=== PATIENT | male | born 1940 | race Caucasian/White ===

== ENCOUNTER 2019-07-03 20:18 | Inpatient (IN) | payer MEDICARE, BC ==
[~2019-07-03] VITALS: Ht 167.6 cm; Wt 68.5 kg
--- NOTE | 2019-07-03 20:30 | NUR ---
PATIENT WAS MSE BY DR FLOWERS IN ROOM 05A.
[2019-07-03 21:11] LABS: BASOPHILS % (AUTO) 0.3 % (0.0-2.0); EOSINOPHILS # (AUTO) 0.1 K/uL (0.0-0.7); EOSINOPHILS % (AUTO) 0.7 % (0.0-7.0); HEMATOCRIT 39.2 % (31.2-41.9); LYMPHOCYTES # (AUTO) 1.9 K/uL (20.0-40.0); LYMPHOCYTES % (AUTO) 14.9 % (20.5-51.5); MEAN CORPUSCULAR HEMOGLOBIN 32.7 uug (24.7-32.8); MEAN CORPUSCULAR HGB CONC 33 g/dL (32.3-35.6); MEAN CORPUSCULAR VOLUME 98.4 fL (75.5-95.3); MONOCYTES # (AUTO) 1.3 K/uL (2.0-10.0); MONOCYTES % (AUTO) 10.4 % (0.0-11.0); NEUTROPHILS # (AUTO) 9.5 K/uL (1.8-8.9); NEUTROPHILS % (AUTO) 73.7 % (38.5-71.5); PLATELET COUNT (AUTO) 239 K/uL (179-408); RED BLOOD CELL COUNT(AUTO) 3.98 MIL/uL (3.63-4.92); WHITE BLOOD COUNT (AUTO) 12.9 K/uL (3.8-11.8)
[2019-07-03] MEDS ORDERED: POLY17PO4 PO (21:15)
[2019-07-03] MEDS ORDERED: SOD85CRE TP (21:15)
[2019-07-03] MEDS ORDERED: TURM538C PO (21:15)
[2019-07-03] MEDS ORDERED: magnesium PO (21:15)
[2019-07-03] MEDS ORDERED: TRAZ-257 PO (21:15)
[2019-07-03] MEDS ORDERED: TACR100O2 TP (21:15)
[2019-07-03] MEDS ORDERED: QUET25TA PO (21:15)
[2019-07-03] MEDS ORDERED: QUET50TA PO (21:15)
[2019-07-03] MEDS ORDERED: MEMA10TA PO (21:15)
[2019-07-03] MEDS ORDERED: CLOT30CR24 TP (21:15)
[2019-07-03] MEDS ORDERED: CLON0.1T PO (21:15)
[2019-07-03] MEDS ORDERED: ASCO500P18 PO (21:15)
[2019-07-03] MEDS ORDERED: DIVA125T2 PO (21:15)
[2019-07-03] MEDS ORDERED: MELA5TAB PO (21:15)
[2019-07-03] MEDS ORDERED: AMOX-430 PO (21:15)
[2019-07-03] MEDS ORDERED: ACET-2154 PO (21:15)
[2019-07-03] MEDS ORDERED: RISP0.5T5 PO (21:15)
[2019-07-03] MEDS ORDERED: CARB-93 PO (21:15)
[2019-07-03] MEDS ORDERED: DIVA500T2 PO (21:15)
[2019-07-03] MEDS ORDERED: LIDO1ADH71 TD (21:15)
[2019-07-03] MEDS ORDERED: CHLO473M5 MM (21:15)
[2019-07-03] MEDS ORDERED: RISP0.5T20 PO (21:15)
[2019-07-03 21:16] LABS: CARBON DIOXIDE 28 mmol/L (21-32); CHLORIDE 102 mmol/L (98-107); GLUCOSE 106 mg/dL (74-106); POTASSIUM 4.4 mmol/L (3.5-5.1); UREA NITROGEN, BLOOD 14 mg/dL (7-18)
[2019-07-03 21:21] LABS: ALANINE AMINOTRANSFERASE 13 U/L (14-59); ALKALINE PHOSPHATASE 111 U/L (50-136); ASPARTATE AMINOTRANSFERASE 17 U/L (15-37); BILIRUBIN,DIRECT 0.1 mg/dL (0.0-0.2); BILIRUBIN,TOTAL 0.4 mg/dL (0.2-1.0); TOTAL PROTEIN, SERUM 6.7 g/dL (6.4-8.2)
[2019-07-03 21:22] LABS: ACETAMINOPHEN < 10.0 ug/mL (10-30)
[2019-07-03 21:25] LABS: ETHANOL < 3 MG/DL (0-0)
[2019-07-03 21:45] LABS: THYROID STIMULATING HORMONE 1.073 mIU/mL (0.358-3.740)
--- NOTE | 2019-07-03 21:55 | NUR ---
PATIENT CONFUSED,ATTEMPTING TO GET OUT OF BED. DR FLOWERS AWARE.
[2019-07-03] MEDS ORDERED: HALOPERIDOL LACTATE 5 MG/1 ML VIAL ONE (21:57)
[2019-07-03] MEDS ORDERED: HALOPERIDOL LACTATE 5 MG/1 ML VIAL IM ONE (22:00)
[2019-07-03] MEDS ORDERED: LIDOCAINE 2% (UROJET) 10 ML JELLY MM ONE (22:00)
[2019-07-03 22:02] LABS: *BILIRUBIN,URIN NEGATIVE (NEGATIVE); *BLOOD, URINE NEGATIVE (NEGATIVE); *CLARITY,URINE CLEAR (CLEAR); *COLOR,URINE YELLOW (YELLOW); *KETONES,URINE TRACE (NEGATIVE); *UROBILINOGEN,URINE 0.2 E.U./dl (NORMAL); LEUKOCYTE ESTERASE ,URINE NEGATIVE (NEGATIVE); NITRITE, URINE NEGATIVE (NEGATIVE); PH,URINE 6.5 (5.0-8.0); UGLUCOSE NEGATIVE (NEGATIVE)
[2019-07-03 22:15] LABS: *AMPHETAMINE, URINE NEGATIVE (NEGATIVE); *BARBITURATE, URINE NEGATIVE (NEGATIVE); *CANNABINOID, URINE NEGATIVE (NEGATIVE); *COCCAINE, URINE NEGATIVE (NEGATIVE); *OPIATE, URINE NEGATIVE (NEGATIVE); *PHENCYCLIDINE SCREEN,URINE NEGATIVE (NEGATIVE)
--- NOTE | 2019-07-03 22:15 | NUR ---
PATIENT WAS EVALUATED BY FADI AND WILL PLACED ON HOLD.
[2019-07-03] MEDS ORDERED: LORAZEPAM 2 MG/1 ML VIAL ONE (22:26)
[2019-07-03] MEDS ORDERED: LORAZEPAM 2 MG/1 ML VIAL IM ONE (22:30)
--- NOTE | 2019-07-03 22:34 | NUR ---
Pt. admitted to MHU , under care of Dr. ALVA. Belongs List completed
[2019-07-03 22:45] VITALS: BP 98/44
[2019-07-03] MEDS ORDERED: TEMAZEPAM 7.5 MG CAPSULE PO PRN (23:30)
[2019-07-03] MEDS ORDERED: BLOOD SUGAR DIAGNOSTIC 1 EACH STRIP VI ONE (23:30)
[2019-07-03] MEDS ORDERED: MAGNESIUM HYDROXIDE 30 ML LIQUID UDC PO PRN (23:30)
[2019-07-03] MEDS ORDERED: MAG HYDROX/AL HYDROX/SIMETH 30 ML LIQUID UDC PO PRN (23:30)
--- NOTE | 2019-07-04 00:15 | NUR ---
RECEIVED TO CARE AT 2230, FROM THE EMERGENCY ROOM, ON A 72 HOUR HOLD FOR GRAVELY DISABLED, A TRANSFER FROM [facility]. ACCORDING TO THE HOLD, HE WAS BECOMING UNMANAGEABLE, BY STAFF. ALSO WAS REPORTED TO BE CONFUSED, WITH UNSTEADY GAIT, DISROBING, AND ATTEMPTING TO AMBULATE FROM HIS GURNEY, UNASSISTED. UPON ARRIVAL ON THE UNIT, HE WA SCONFUSED, AND RESTLESS. HE WAS MEDICATED IN WITH IM HALDOL AND ATIVEN, AND , WITHIN A FEW MINUTES HE WAS ASLEEP, AND ASSITED TO BED. OF NOW, HE REMAINS ASLEEP. NO DISTRESS NOTED. WILL CONTINUE TO MONITOR CLOSELY.
--- NOTE | 2019-07-04 06:00 | NUR ---
slept 6.25 hours. continues to sleep. no distress noted.
[2019-07-04 07:30] VITALS: BP 119/65
[2019-07-04] MEDS: LORAZEPAM 1 MG TABLET PO PRN ×2 (07:46→12:33)
[2019-07-04] MEDS: ACETAMINOPHEN 325 MG TABLET PO PRN (07:46)
[2019-07-04] MEDS: Z GUARD REMEDY PASTE 57 GM TUBE TOP SCH ×2 (09:06→20:28)
--- NOTE | 2019-07-04 10:25 | NUR ---
Social Work Note/Initial Discharge Plan: Patient currently resides at [address], [place] [address]; ([phone]). Per Stan ([phone]), expressed that she would want to reside at a SNF. SW will work with the patient and the MD regarding appropriate discharge planning. winery worker will form a safe and proper discharge.
--- NOTE | 2019-07-04 10:25 | NUR ---
Social Work Note/Family Contact: cupola worker spoke to patients significant other Stan ([phone]) and gathered collateral. Per Stan, she is the POA and will send over documentations to this typewriter assembly and parts inspector.
[2019-07-04] MEDS: ASCORBIC ACID 500 MG TABLET PO SCH (11:05)
--- NOTE | 2019-07-04 12:24 | NUR ---
Social Work Note/Coordination of Care: freezer worker spoke to admin coordinator Gaby from [facility] ([phone]) and they addressed that they are uncertain if they will accept patient back.
--- NOTE | 2019-07-04 12:30 | NUR ---
WOUND CARE CONSULT: PT PRESENTS WITH RT ELBOW SKIN TEAR AND LEFT LOWER LEG WOUNDS, PRESENT ON ADMISSION. RT LEG HAS HEALED AREA NOTED. RECOMMEND DPM CONSULT DEFER TO DPM FOR LOWER EXTREMITIES. WOUNDS ON LOWER LEGS ARE PROTECTED WITH NONSTICK DRESSINGS. RECOMMENDATIONS MADE FOR WOUND CARE OF RT ELBOW AND DISCUSSED WITH NURSING STAFF. PT REFUSED TO TURN FOR FULL SKIN ASSESSMENT OF BACK AND BUTTOCKS. WILL SEE PRN. HUNT IN AGREEMENT WITH PLAN OF CARE. CURRENT ESTELLA SCORE IS 20. Addendum: 07/04/19 at 1232 by KIERRA DEAN RN Amended: Links added.
[2019-07-04] MEDS: CLOTRIMAZOLE 1% CREAM 30 GM TUBE TP SCH (12:33)
[2019-07-04] MEDS: AMOXICILLIN-CLAVUL 875-125MG TABLET PO SCH ×2 (12:33→16:06)
[2019-07-04] MEDS: CARBIDOPA/LEVODOPA 25-100MG TABLET PO SCH ×2 (12:33→16:06)
--- NOTE | 2019-07-04 13:12 | NUR ---
Social Work Note/Coordination of Care: asbestos removal worker contacted Carlos Alberto admin coordinator from [facility] ([phone]) and stated that they are a locked facility but they are through private pay. Per Carlos Alberto, he stated that it is $240 per day and that they are not through insurance.
[2019-07-04] MEDS ORDERED: chlorproMAZINE 50 MG/2 ML AMPUL IM STA (14:32)
--- NOTE | 2019-07-04 14:50 | NUR ---
GPS: Nursing Notes: Chemical Restraint: Patient is awake and constantly shouting, screaming, overly disruptive, poor impulse control, poor anger management, episodes of disrobing, severe agitated behavior, restless, unable to be redirected, internally preoccupied, disoriented, confused, disorganized, banging on the table and the wall, resistant with nursing care, Dr. Koroma called and ordered: Thorazine 50mg IM STAT, R=18, continue to monitor for safety, medications IM given at this time, continue with treatment plan.
--- NOTE | 2019-07-04 15:18 | NUR ---
GPS: Nursing Notes: Reassessment of Chemical Restraint: Patient became calm, continue to be confused, disoriented, but stopped screaming and shouting, stopped banging on the table and wall, R=18, medication IM STAT was effective, continue to monitor for safety, continue with treatment plan.
--- NOTE | 2019-07-04 15:19 | NUR ---
Social Work Note/Coordination of Care: farmworker poultry contacted Carlos Alberto admin coordinator from [facility] ([phone]) and stated that they are a locked facility but they are through private pay. Per Carlos Alberto, he stated that it is $240 per day and that they are not through insurance. Per patients significant other Stan ([phone]) stated that she is able to pay out of pocket. This expert medical writer will fax patients H & P psychiatric notes and progress notes when completes (at this moment it is unavailable in the system).
[2019-07-04 16:00] VITALS: BP 92/44
[2019-07-04] MEDS: THERAHONEY GEL 1.5 OZ TUBE TOP SCH (16:18)
[2019-07-04] MEDS: MIRALAX 17 GM POWD.PACK PO SCH (19:57)
[2019-07-04 20:19] VITALS: BP 140/85
[2019-07-04] MEDS: RIVASTIGMINE TARTRATE 1.5 MG CAPSULE PO SCH (21:24)
[2019-07-04] MEDS: DIVALPROEX 250 MG TABLET.DR PO SCH (21:24)
[2019-07-04] MEDS: risperiDONE 0.5 MG TABLET PO SCH (21:24)
--- NOTE | 2019-07-05 05:56 | NUR ---
Patient slept 6 hours. Am care given. No distress noted. Patient does yell out from time to time. Continuing to keep patient safe.
[2019-07-05 07:30] VITALS: BP 162/68
[2019-07-05] MEDS: RIVASTIGMINE TARTRATE 1.5 MG CAPSULE PO SCH ×2 (08:03→20:28)
[2019-07-05] MEDS: CARBIDOPA/LEVODOPA 25-100MG TABLET PO SCH ×3 (08:03→16:03)
[2019-07-05] MEDS: AMOXICILLIN-CLAVUL 875-125MG TABLET PO SCH ×2 (08:03→16:03)
[2019-07-05] MEDS: DIVALPROEX 250 MG TABLET.DR PO SCH (08:03)
[2019-07-05] MEDS: risperiDONE 0.5 MG TABLET PO SCH ×2 (08:03→20:28)
[2019-07-05] MEDS: ASCORBIC ACID 500 MG TABLET PO SCH (08:03)
[2019-07-05] MEDS: CLOTRIMAZOLE 1% CREAM 30 GM TUBE TP SCH (08:04)
[2019-07-05] MEDS: Z GUARD REMEDY PASTE 57 GM TUBE TOP SCH ×2 (08:04→20:28)
[2019-07-05] MEDS: THERAHONEY GEL 1.5 OZ TUBE TOP SCH (08:07)
[2019-07-05] MEDS: LORAZEPAM 1 MG TABLET PO PRN ×2 (08:09→22:36)
[2019-07-05] MEDS ORDERED: Medication Not On Formulary EA (Ascorbic Acid (Vitamin C) 1,000 MG) PO SCH (09:00)
[2019-07-05 15:47] VITALS: BP 107/55
[2019-07-05] MEDS: MIRALAX 17 GM POWD.PACK PO SCH (20:28)
[2019-07-05 20:44] VITALS: BP 130/57
[2019-07-06 07:56] VITALS: BP 134/64
[2019-07-06] MEDS: CARBIDOPA/LEVODOPA 25-100MG TABLET PO SCH ×5 (08:20→18:04)
[2019-07-06] MEDS: AMOXICILLIN-CLAVUL 875-125MG TABLET PO SCH ×4 (08:20→18:03)
[2019-07-06] MEDS: risperiDONE 0.5 MG TABLET PO SCH ×4 (08:20→21:15)
[2019-07-06] MEDS: CLOTRIMAZOLE 1% CREAM 30 GM TUBE TP SCH (08:20)
[2019-07-06] MEDS: DIVALPROEX 250 MG TABLET.DR PO SCH ×5 (08:20→18:03)
[2019-07-06] MEDS: ASCORBIC ACID 500 MG TABLET PO SCH ×3 (08:20→08:47)
[2019-07-06] MEDS: Z GUARD REMEDY PASTE 57 GM TUBE TOP PRN (08:23)
[2019-07-06] MEDS: THERAHONEY GEL 1.5 OZ TUBE TOP SCH (08:24)
[2019-07-06] MEDS: Z GUARD REMEDY PASTE 57 GM TUBE TOP SCH ×2 (08:26→21:17)
[2019-07-06] MEDS: RIVASTIGMINE TARTRATE 1.5 MG CAPSULE PO SCH ×3 (08:26→21:15)
[2019-07-06] MEDS: LORAZEPAM 1 MG TABLET PO PRN ×2 (08:30→13:34)
[2019-07-06] MEDS: ACETAMINOPHEN 325 MG TABLET PO PRN (08:30)
--- NOTE | 2019-07-06 09:33 | NUR ---
Social Work Note/Coordination of Care: plate worker helper spoke to Carlos Alberto admin coordinator ([phone]) ([phone]) and sent patients H & P psychiatric notes and progress notes. Per Carlos Alberto, he will contact this flex o writer operator to when to evaluate patient.
--- NOTE | 2019-07-06 11:46 | NUR ---
Social Work Note/Family Contact: hot iron worker spoke to patients significant other Stan ([phone]) in regard to patients discharge plan and stated that [facility] will accept patient. Stan, sent this software writer POA documentation, this software writer filed documentation.
--- NOTE | 2019-07-06 11:47 | NUR ---
Social Work Note/Coordination of Care: rubber worker spoke to Carlos Alberto admin coordinator from [facility] ([phone]) ([phone]) and sent patients H & P psychiatric notes and progress notes. Evelin Godoy evaluated patient and stated that they will accept patient upon discharge.
[2019-07-06 16:56] VITALS: BP 125/66
--- NOTE | 2019-07-06 17:25 | NUR ---
Patient admitted at 1525 to GPS on a 5150 hold for DTS, educated about hold and advisement given and placed at patient bedside. Patient admitted from ER on a gurney by RN. Dr. Wylie notified about admission at 1615. Patient's called to obtain Advanced Directive, left message at 1700. Upon admission, patient is irritable, anxious, and angry. On face to face interview, patient initially refused to provide information but later provided information. Patient stated that he has not had any previous psychiatric admission, no history of SI or SA. Patient had 1 admission to [facility] in "summer" for alcohol abuse. He reports drinking 1 pint of vodka daily, but has since stopped and is only drinking 1 glass of wine per week. patient current smokes cannabis 3-4 times per week for chronic pain in his abdomen from previous surgeries. Patient denies history of abuse. Patient oriented to unit rules and policies. Patient provided with patients rights booklet. He was cooperative with admission, patient signed all admission paperwork. No agitation or threatening behaviors. Addendum: 07/06/19 at 1734 by JAMES MACKAY RN Admission note not intended for this patient.
[2019-07-06 20:07] VITALS: BP 130/62
[2019-07-06] MEDS: MIRALAX 17 GM POWD.PACK PO SCH (21:15)
--- NOTE | 2019-07-06 23:00 | NUR ---
Pt served with copy of 5250 Certification.
[2019-07-07 07:30] VITALS: BP 168/80
[2019-07-07] MEDS: ASCORBIC ACID 500 MG TABLET PO SCH (08:44)
[2019-07-07] MEDS: Z GUARD REMEDY PASTE 57 GM TUBE TOP PRN (08:45)
[2019-07-07] MEDS: risperiDONE 0.5 MG TABLET PO SCH ×2 (08:45→21:05)
[2019-07-07] MEDS: RIVASTIGMINE TARTRATE 1.5 MG CAPSULE PO SCH ×2 (08:45→21:05)
[2019-07-07] MEDS: CARBIDOPA/LEVODOPA 25-100MG TABLET PO SCH ×3 (08:45→16:54)
[2019-07-07] MEDS: CLOTRIMAZOLE 1% CREAM 30 GM TUBE TP SCH (08:45)
[2019-07-07] MEDS: DIVALPROEX 250 MG TABLET.DR PO SCH ×3 (08:45→16:54)
[2019-07-07] MEDS: THERAHONEY GEL 1.5 OZ TUBE TOP SCH (08:46)
[2019-07-07] MEDS: Z GUARD REMEDY PASTE 57 GM TUBE TOP SCH ×2 (08:46→21:05)
--- NOTE | 2019-07-07 15:12 | NUR ---
Social Work Note/Individual Therapy Notes: galley worker met with patient but was unable to have a conversation with patient due to his situation. Patient is unable to ascertain and engage in conversation.
[2019-07-07 16:44] VITALS: BP 165/91
[2019-07-07 20:14] VITALS: BP 147/70
[2019-07-07] MEDS: MIRALAX 17 GM POWD.PACK PO SCH (21:00)
[2019-07-08 07:30] VITALS: BP 138/65
[2019-07-08] MEDS: risperiDONE 0.5 MG TABLET PO SCH ×2 (08:33→21:22)
[2019-07-08] MEDS: DIVALPROEX 250 MG TABLET.DR PO SCH ×3 (08:33→17:06)
[2019-07-08] MEDS: CARBIDOPA/LEVODOPA 25-100MG TABLET PO SCH ×3 (08:33→17:06)
[2019-07-08] MEDS: RIVASTIGMINE TARTRATE 1.5 MG CAPSULE PO SCH ×2 (08:33→21:22)
[2019-07-08] MEDS: ASCORBIC ACID 500 MG TABLET PO SCH (08:33)
[2019-07-08] MEDS: Z GUARD REMEDY PASTE 57 GM TUBE TOP SCH ×2 (08:34→21:23)
[2019-07-08] MEDS: THERAHONEY GEL 1.5 OZ TUBE TOP SCH (08:34)
[2019-07-08] MEDS: CLOTRIMAZOLE 1% CREAM 30 GM TUBE TP SCH (08:34)
[2019-07-08 16:00] VITALS: BP 153/68
--- NOTE | 2019-07-08 17:30 | NUR ---
came to visit. took patient to recreation room to have dinner and spend time with other family members.
[2019-07-08 20:47] VITALS: BP 150/70
[2019-07-08] MEDS: MIRALAX 17 GM POWD.PACK PO SCH (21:22)
--- NOTE | 2019-07-08 22:00 | NUR ---
received to care, up in daron chair, appearing calm, upon approach. compliant with medications, snacks, and all care rendered. as of 2199, he appears to be asleep, in bed. no distress noted. will continue to monitor closely.
[2019-07-09] MEDS: LORAZEPAM 1 MG TABLET PO PRN (01:08)
--- NOTE | 2019-07-09 01:08 | NUR ---
is now awake, yelling out, intermittently. stating "this is kanika, and i am applying for a job". PRN ativan was given. no acute distress noted. will continue to monitor closely.
--- NOTE | 2019-07-09 02:00 | NUR ---
appears to be asleep.
--- NOTE | 2019-07-09 06:00 | NUR ---
slept 7.45 hours, total. assited with am care, and shower. no distress noted.
[2019-07-09 07:30] VITALS: BP 144/62
[2019-07-09] MEDS: RIVASTIGMINE TARTRATE 1.5 MG CAPSULE PO SCH ×2 (08:45→21:00)
[2019-07-09] MEDS: risperiDONE 0.5 MG TABLET PO SCH ×2 (08:45→21:00)
[2019-07-09] MEDS: CARBIDOPA/LEVODOPA 25-100MG TABLET PO SCH ×3 (08:46→16:47)
[2019-07-09] MEDS: ASCORBIC ACID 500 MG TABLET PO SCH (08:46)
[2019-07-09] MEDS: DIVALPROEX 250 MG TABLET.DR PO SCH ×3 (08:46→16:47)
[2019-07-09] MEDS: CLOTRIMAZOLE 1% CREAM 30 GM TUBE TP SCH (08:48)
[2019-07-09] MEDS: THERAHONEY GEL 1.5 OZ TUBE TOP SCH (08:49)
[2019-07-09] MEDS: Z GUARD REMEDY PASTE 57 GM TUBE TOP SCH ×2 (08:49→20:53)
[2019-07-09 10:00] VITALS: BP 144/62
[2019-07-09 20:04] VITALS: BP 122/47
[2019-07-09] MEDS: METOPROLOL TARTRATE 25 MG TABLET PO SCH (21:00)
[2019-07-09] MEDS: MIRALAX 17 GM POWD.PACK PO SCH (21:00)
--- NOTE | 2019-07-09 22:00 | NUR ---
received to care, lying in bed, asleep. but easy to awaken. responds with a mumble, and goes right back to sleep. pt was able to take and tolerate PO fluids (150 ml of water was given), but medications were held, due to sleepiness. as or 2200, he remains asleep. responds verbally when care is rendered, but remains sleepy, when engaged. no distress noted. will continue to monitor closely.
--- NOTE | 2019-07-10 06:00 | NUR ---
slept 10.5 hours, total. continues to sleep. no distress noted.
[2019-07-10 07:30] VITALS: BP 142/50
[2019-07-10] MEDS: ASCORBIC ACID 500 MG TABLET PO SCH (09:50)
[2019-07-10] MEDS: METOPROLOL TARTRATE 25 MG TABLET PO SCH ×2 (09:51→20:28)
[2019-07-10] MEDS: DIVALPROEX 250 MG TABLET.DR PO SCH ×3 (09:51→16:47)
[2019-07-10] MEDS: RIVASTIGMINE TARTRATE 1.5 MG CAPSULE PO SCH ×2 (09:51→20:28)
[2019-07-10] MEDS: risperiDONE 0.5 MG TABLET PO SCH ×2 (09:51→20:28)
[2019-07-10] MEDS: CARBIDOPA/LEVODOPA 25-100MG TABLET PO SCH ×3 (09:57→16:47)
[2019-07-10] MEDS: ACETAMINOPHEN 325 MG TABLET PO PRN (09:57)
[2019-07-10] MEDS: Z GUARD REMEDY PASTE 57 GM TUBE TOP SCH ×2 (09:58→20:32)
[2019-07-10] MEDS: CLOTRIMAZOLE 1% CREAM 30 GM TUBE TP SCH (09:59)
[2019-07-10] MEDS: THERAHONEY GEL 1.5 OZ TUBE TOP SCH (09:59)
--- NOTE | 2019-07-10 11:05 | NUR ---
GPS: Nursing Notes: Late Entry for 07/04/19at 15:46: Refusing For Picture To Be Taken: Patient became angry and disruptive, severe agitation, resistant with nursing care, refusing for picture to be taken of his right elbow, skin tear present on admission.
--- NOTE | 2019-07-10 15:23 | NUR ---
Social Work Note/PC Hearing Notification: habilitation worker contacted patients significant other Stan, ([phone]) and notified patients probable cause of hearing today.
--- NOTE | 2019-07-10 15:53 | NUR ---
Social Work Note/Family Contact: machine shop worker contacted patients significant other Stan ([phone]) and addressed patients status and discharged plan.
--- NOTE | 2019-07-10 16:03 | NUR ---
Social Work/Coordination of Care: asbestos abatement worker contacted Carlos Alberto from [facility] ([phone]) (F:[phone]) and sent patients recent psychiatric H & P notes and progress notes. Per Carlos Alberto, he is agreeable to patients discharge plan on 07/12/2019.
[2019-07-10 16:32] VITALS: BP 160/99
[2019-07-10 20:14] VITALS: BP 145/56
[2019-07-10 20:28] VITALS: BP 145/56
[2019-07-10] MEDS: MIRALAX 17 GM POWD.PACK PO SCH (20:28)
[2019-07-11] MEDS: Z GUARD REMEDY PASTE 57 GM TUBE TOP PRN (00:57)
[2019-07-11] MEDS ORDERED: Z GUARD REMEDY PASTE 57 GM TUBE TOP PRN (01:15)
--- NOTE | 2019-07-11 04:00 | NUR ---
GPS: Pt.asleep upon rounds. Breathing easy and unlabored. In no form of distress noted. Fall precautions observed. Repositioned for comfort prn. Will continue to monitor.
--- NOTE | 2019-07-11 06:15 | NUR ---
GPS: Pt.after shower suddenly became unresponsive to voice/tactile stimuli. Skin color was pale and unable to be aroused. V/S taken as follows; B/P 43/29 O2 Sat 96%. Rapid Response was called. B.S 162 mg/dl. was notified.House Supv.with instructions to take pt.to E.R. for further eval. Pt.left unit accompanied by E.R. nurses and house supv. Report given to Sagar Starr Last B/P 79/36,O2 Sat.95%.
--- NOTE | 2019-07-11 07:00 | NUR ---
GPS: Endorsed day shift nurse to inform /resp.libertarian of pt's transfer to E.R.
[2019-07-11] MEDS ORDERED: Z GUARD REMEDY PASTE 57 GM TUBE TOP SCH (09:00)
--- NOTE | 2019-07-11 10:11 | NUR ---
Social Work Note/Discharge Note: Patient was transferred from [facility] to [facility] on 07/11/2019 at 7AM due to low blood pressure. In the morning patient was given a shower, he presented pale and his blood pressure was low and was unresponsive. Dr. Koroma discontinued the 5250 for grave disability. Patient had a planned discharge for tomorrow 07/12/2019 to a [facility] assisted living [address], [place] [address]; ([phone]) and will be provided transportation at 1PM by [facility]. Engine Oiler spoke with Carlos Alberto ultrasound coordinator ([phone]) at the facility who states they are ready to accept the patient back today. Patients significant other Stan, ([phone]) is aware and agreeable with discharge plans. Patient is aware and agreeable with discharge plans. Patient will follow-up at the facility with Dr. Darwin Garcia (gifted teacher) and with Dr. Pastor (psychiatrist). Patient was given outpatient mental health referrals to [facility], [facility] [address], [place] [address]; [phone]]; [facility] Crisis Line ([phone]); National Suicide Prevention Lifeline ( ). Patient presents with euthymic mood and congruent affect.
--- NOTE | 2019-07-11 15:20 | NUR ---
Social Work Note: packing floor worker contacted Afshan case coordinator and notified to fax patients physician report to [facility] ([phone]) (F:[phone]). packing floor worker also contacted Carlos Alberto admin coordinator ([phone]) that discharge will be canceled for 07/12/19 due to patient not doing well.
== END 2019-07-11 08:00 | disposition short-term general hospital (02) | DRG 885 ==
LOC: ER 20:18 → EDSEX 20:18 → GPS 22:37
PROVIDERS: ADMIT Psychiatry & Neurology Psychiatry; ATTEND Internal Medicine
DX: F39 Unspecified mood [affective] disorder (principal); F02.81 Dementia in other diseases classified elsewhere, unspecified severity, with behavioral disturbance; G31.83 Neurocognitive disorder with Lewy bodies; I45.10 Unspecified right bundle-branch block; N40.1 Benign prostatic hyperplasia with lower urinary tract symptoms; R40.4 Transient alteration of awareness; N39.498 Other specified urinary incontinence; J45.909 Unspecified asthma, uncomplicated; D75.89 Other specified diseases of blood and blood-forming organs; Z91.81 History of falling; R26.81 Unsteadiness on feet; G89.29 Other chronic pain; M54.5 Low back pain; Z91.19 Patient's noncompliance with other medical treatment and regimen; M20.42 Other hammer toe(s) (acquired), left foot; M20.41 Other hammer toe(s) (acquired), right foot; L90.9 Atrophic disorder of skin, unspecified; S81.802A Unspecified open wound, left lower leg, initial encounter; X58.XXXA Exposure to other specified factors, initial encounter; Y92.129 Unspecified place in nursing home as the place of occurrence of the external cause
CPT/HCPCS: 36415; 80307; 84443; 85025; 93005; A4663; G0480; G0480-TC; J1630; J2060; J3230; J3490

== ENCOUNTER 2019-07-11 06:41 | Inpatient (IN) | payer MEDICARE, BC ==
[2019-07-11] VITALS (33 sets, daily range): BP systolic 59–125; BP diastolic 32–98
[~2019-07-11] VITALS: Ht 167.6 cm; Wt 65.3 kg
[~2019-07-11 06:41] MED LIST: ACET-2154 PO; AMOX-430 PO; ASCO500P18 PO; CARB-93 PO; CHLO473M5 MM; CLON0.1T PO; CLOT30CR24 TP; LIDO1ADH71 TD; POLY17PO4 PO; SOD85CRE TP; TACR100O2 TP; TURM538C PO; magnesium PO
[2019-07-11] MEDS ORDERED: IV NORMAL SALINE 500 ML BAG IV ONE (07:00)
--- NOTE | 2019-07-11 07:00 | NUR ---
Patient brought in from MHU to ED. c/o AMS. MHU staff states that patient was "fine" before taking a shower and sudden change in LOC. patient responsive to painful stimuli only. Breathing even and unlabored. O2 sat at 98% on RA. POC BS at bedside was 165. pulses palpable x4 extremities. equal BUE strength noted. VS at bedside MECHANICAL OXIDIZER to ED BP76/65 P108 R16.
--- NOTE | 2019-07-11 07:10 | NUR ---
Patient taken to radiology dept via felicitas. VS P102 R14 T98.9 O2 sat at 92% on RA
[2019-07-11 07:15] LABS: BASOPHILS # (AUTO) 0.1 K/uL (0.0-8.0); BASOPHILS % (AUTO) 0.5 % (0.0-2.0); EOSINOPHILS # (AUTO) 0.1 K/uL (0.0-0.7); EOSINOPHILS % (AUTO) 0.5 % (0.0-7.0); HEMATOCRIT 43.5 % (36.7-47.1); HEMOGLOBIN 14.2 g/dL (12.5-16.3); LYMPHOCYTES # (AUTO) 2.2 K/uL (20.0-40.0); LYMPHOCYTES % (AUTO) 18.8 % (20.5-51.5); MEAN CORPUSCULAR HEMOGLOBIN 32.1 uug (23.8-33.4); MEAN CORPUSCULAR HGB CONC 33 g/dL (32.5-36.3); MEAN CORPUSCULAR VOLUME 97.9 fL (73.0-96.2); MONOCYTES # (AUTO) 1.2 K/uL (2.0-10.0); MONOCYTES % (AUTO) 10.4 % (0.0-11.0); NEUTROPHILS # (AUTO) 8.1 K/uL (1.8-8.9); NEUTROPHILS % (AUTO) 69.8 % (38.5-71.5); PLATELET COUNT (AUTO) 274 K/uL (152-348); RED BLOOD CELL COUNT(AUTO) 4.44 MIL/uL (4.06-5.63); WHITE BLOOD COUNT (AUTO) 11.6 K/uL (3.6-10.2)
--- NOTE | 2019-07-11 07:20 | NUR ---
Report given to juliano HENNING
[2019-07-11 07:21] LABS: CARBON DIOXIDE 26 mmol/L (21-32); CHLORIDE 103 mmol/L (98-107); CREATININE 1.2 mg/dL (0.6-1.3); GLUCOSE 191 mg/dL (74-106); POTASSIUM 4.2 mmol/L (3.5-5.1); UREA NITROGEN, BLOOD 22 mg/dL (7-18)
[2019-07-11 07:26] LABS: ALANINE AMINOTRANSFERASE 42 U/L (16-63); ALKALINE PHOSPHATASE 117 U/L (50-136); ASPARTATE AMINOTRANSFERASE 17 U/L (15-37); BILIRUBIN,DIRECT 0.1 mg/dL (0.0-0.2); BILIRUBIN,TOTAL 0.5 mg/dL (0.2-1.0); TOTAL PROTEIN, SERUM 7.1 g/dL (6.4-8.2)
--- NOTE | 2019-07-11 07:27 | NUR ---
Pt back from CT, NAD noted at this time.
[2019-07-11 07:34] LABS: THYROID STIMULATING HORMONE 1.783 mIU/mL (0.358-3.740)
--- NOTE | 2019-07-11 08:15 | NUR ---
Dr. Bryant spoke with Dr. Gomez via telephone, pt to be admitted to tele. Attempted to give report to tele floor, assigned nurse to call back.
--- NOTE | 2019-07-11 08:30 | NUR ---
Attempted to give report again, assigned nurse to call back. Pt resting with NAD noted.
--- NOTE | 2019-07-11 08:37 | NUR ---
SBAR report given to MILADY Contreras via telephone.
--- NOTE | 2019-07-11 08:49 | NUR ---
Pt trans to tele floor, NAD noted.
[2019-07-11] MEDS ORDERED: IV D5/ 0.9% NACL 1,000 ML IV PRN (10:45)
[2019-07-11] MEDS ORDERED: ACETAMINOPHEN 325 MG TABLET PO PRN (10:45)
[2019-07-11] MEDS ORDERED: Z GUARD REMEDY PASTE 57 GM TUBE TOP PRN (10:45)
[2019-07-11] MEDS ORDERED: HYDROCODONE/APAP 5-325MG TABLET PO PRN (10:45)
[2019-07-11] MEDS ORDERED: CARBIDOPA/LEVODOPA 25-100MG TABLET PO SCH (10:45)
[2019-07-11] MEDS: ENOXAPARIN SODIUM 40 MG/0.4 ML DISP.SYRIN SQ SCH (10:45)
[2019-07-11] MEDS ORDERED: ONDANSETRON 4 MG/2 ML VIAL IV PRN (10:45)
[2019-07-11 12:48] LABS: BASOPHILS % (AUTO) 0.1 % (0.0-2.0); CARBON DIOXIDE 21 mmol/L (21-32); CHLORIDE 103 mmol/L (98-107); CREATININE 1.7 mg/dL (0.6-1.3); GLUCOSE 261 mg/dL (74-106); HEMATOCRIT 41.9 % (36.7-47.1); HEMOGLOBIN 13.5 g/dL (12.5-16.3); LYMPHOCYTES # (AUTO) 1.1 K/uL (20.0-40.0); LYMPHOCYTES % (AUTO) 7.1 % (20.5-51.5); MEAN CORPUSCULAR HEMOGLOBIN 32.5 uug (23.8-33.4); MEAN CORPUSCULAR HGB CONC 32 g/dL (32.5-36.3); MEAN CORPUSCULAR VOLUME 100.6 fL (73.0-96.2); MONOCYTES % (AUTO) 6.7 % (0.0-11.0); NEUTROPHILS # (AUTO) 13.1 K/uL (1.8-8.9); NEUTROPHILS % (AUTO) 86.1 % (38.5-71.5); PLATELET COUNT (AUTO) 233 K/uL (152-348); POTASSIUM 4.9 mmol/L (3.5-5.1); RED BLOOD CELL COUNT(AUTO) 4.16 MIL/uL (4.06-5.63); UREA NITROGEN, BLOOD 28 mg/dL (7-18)
[2019-07-11 12:59] LABS: WHITE BLOOD COUNT (AUTO) 15.2 K/uL (3.6-10.2)
--- NOTE | 2019-07-11 13:00 | NUR ---
Recieved pt from Diane HENNING post rapid response, post intubated on the floor. SBP is still low in the 70's. Started on Levophed drip at 30mcg/min. Pt also is somewhat is restless, started on Propofol drip at 20mcg/kg/min. Awaiting for the PICC line RN. Pt is responsive, ETT in place. Vent setting of AC14, VT500, FIO@-50%. Sat is 100% HR is ST in the 130's, is awar3e.
--- NOTE | 2019-07-11 13:24 | NUR ---
CLINICAL PHARMACY NOTE:VANCOMYCIN DOSING Request for vancomycin dosing on 78 y/o male 172.72cm 72.57kg for UTI Temp 99.8F BUN 28 Scr 1.7 WBC 15.2 also on Merrem Start vancomycin 1gm ivpb q24h estimated trough 17. Will order trough level prior to 4th dose. Will continue to monitor
[2019-07-11] MEDS ORDERED: NOREPINEPHRINE BITARTRATE 8 MG in IV DEXTROSE 5% 500 ML IV PRN ×3 (13:30→19:15)
[2019-07-11] MEDS ORDERED: PROPOFOL 100 ML IV PRN (13:30)
[2019-07-11] MEDS ORDERED: MEROPENEM 1 G in IV NORMAL SALINE 100 ML IV SCH (14:00)
[2019-07-11] MEDS ORDERED: VANCOMYCIN IV 1,000 MG in IV DEXTROSE 5% 250 ML IV SCH (14:00)
[2019-07-11] MEDS ORDERED: ETOMIDATE 20 MG/10 ML VIAL ONE (14:44)
[2019-07-11] MEDS ORDERED: ROCURONIUM BROMIDE 50 MG/5 ML VIAL ONE (14:44)
[2019-07-11] MEDS: PROPOFOL 100 ML IV PRN (15:04)
[2019-07-11] MEDS: MEROPENEM 1 G in IV NORMAL SALINE 100 ML IV SCH (15:14)
[2019-07-11] MEDS: CHLORHEXIDINE GLUCONATE 15 ML MOUTHWASH MM SCH ×2 (15:15→21:14)
[2019-07-11 15:42] LABS: ABG BASE EXCESS -7.9 mmol/L; ABG HCO3 16.7 mmol/L; ABG PH 7.336 (7.350-7.450); ABG PO2 230.9 mmHg (75.0-100.0); ABG SITE RIGHT RADIAL; ABG TOTAL HEMOGLOBIN 14.1 G/dL (13.5-18.0); MetHb 0.1 % (0.0-1.5); O2Hb 98.6 % (94.0-97.0); VENT MODE VENT - A/C 14; VT, ABG 500 mL
[2019-07-11] MEDS: ASPIRIN 81 MG TAB.CHEW PO SCH (16:00)
--- NOTE | 2019-07-11 16:00 | NUR ---
Seen and examined by DR May with new orders. EKG is done.
[2019-07-11] MEDS ORDERED: CHLORHEXIDINE GLUCONATE 15 ML MOUTHWASH MM SCH (17:00)
--- NOTE | 2019-07-11 17:15 | NUR ---
PT INTUBATED BY ED MD, 7.[address], PATENT AND SECURED WITH TUBE MELVIN. VENT'D WITH FUENTES VENT AND TOLERATING CURRENT SETTINGS WELL. ABG'S DRAWN AND REPORT, NO NEW ORDERS REC'D. VENT ALARMS AUDIBLE, CHECKED AND RESET. BVM AT BEDSIDE. CONT TO MONITOR AND REPORT ANY CHANGES. CONT WITH CURRENT RT ORDERS.
--- NOTE | 2019-07-11 18:00 | NUR ---
PICC line done at bedside on the right groin are. Confirmed placement by XRAY.
--- NOTE | 2019-07-11 18:30 | NUR ---
Pt' BP is low in the 60's. Started on Neosynephrine at 300mg/min. Add Levophed on the drip at 40 mcg/min.
[2019-07-11] MEDS: PHENYLEPHRINE IV 40 MG in IV DEXTROSE 5% 250 ML IV PRN ×3 (18:46→23:12)
--- NOTE | 2019-07-11 19:30 | NUR ---
rounds made patient patient in bed orally intubated on ac 14/500/fio2 50% peep 0 7.5cm ,22 tolerating vent settings saturation 100 % rr 20 suction ett via via the mouth , on Levophed drip and norepinephrine drip to follow protocol to keep sbp >90 mm/hg.propofol for sedation patient withdraws to pain but does not follow commands . moved bilateral hands slow and weak, as endorsed MD:nutralapaty was not able to placed f/c penile area with small amt of blood awaiting for dr: yue urologist . bladder scan is zero bladder is empty .left nare ngt clamp. patient significant others updated with patients v/s ,medications and level of mentation .
[2019-07-11] MEDS: NOREPINEPHRINE BITARTRATE 8 MG in IV DEXTROSE 5% 500 ML IV PRN ×2 (19:32→22:52)
--- NOTE | 2019-07-11 19:45 | NUR ---
DR:CHELSEY at [facility] came to see patient .MD : examined patient at bedside . updated md with patient v/s /labs and current medication .DOCTOR spoked with patient girlfriend katarzyna with patient plan of care and treatment .
--- NOTE | 2019-07-11 20:30 | NUR ---
DR: PELON came assisted and placed codet catheter guatemalan 14 ,irrigated and as per MD catheter is in place but patient just dont have urine right now . spoked wit patient significant other.
--- NOTE | 2019-07-11 20:45 | NUR ---
: BONNIE irrigated the f/c no clot but its cranberry in color .still with no urine output .
[2019-07-11] MEDS ORDERED: MIRALAX 17 GM POWD.PACK PO SCH (21:00)
[2019-07-11] MEDS: FAMOTIDINE. 20 MG/2 ML VIAL IV SCH (21:14)
--- NOTE | 2019-07-11 21:40 | NUR ---
seen and examined by FLIGHT ENGINEER INSPECTOR:SHERINE and updated with patient status and condition ,and updated with labs and v/s.
--- NOTE | 2019-07-11 22:00 | NUR ---
patient daughter name merissa and updated with patient status and condition .
[2019-07-12] VITALS (94 sets, daily range): BP systolic 62–154; BP diastolic 33–111
--- NOTE | 2019-07-12 | NUR ---
am care done bath patient and changed soiled linens had a small bm . f/c done and oral care done .turned and reposition.
[2019-07-12] MEDS: PROPOFOL 100 ML IV PRN ×2 (01:43→18:44)
[2019-07-12] MEDS: PHENYLEPHRINE IV 40 MG in IV DEXTROSE 5% 250 ML IV PRN ×9 (01:43→22:14)
[2019-07-12] MEDS: NOREPINEPHRINE BITARTRATE 8 MG in IV DEXTROSE 5% 500 ML IV PRN ×7 (01:45→21:15)
[2019-07-12] MEDS: MEROPENEM 1 G in IV NORMAL SALINE 100 ML IV SCH ×2 (02:16→15:50)
[2019-07-12 05:21] LABS: LYMPHOCYTES # (AUTO) 2.4 K/uL (20.0-40.0); LYMPHOCYTES % (AUTO) 7.5 % (20.5-51.5); PLATELET COUNT (AUTO) 153 K/uL (152-348)
[2019-07-12 05:23] LABS: BASOPHILS % (AUTO) 0.1 % (0.0-2.0); EOSINOPHILS % (AUTO) 0.1 % (0.0-7.0); HEMATOCRIT 39.3 % (36.7-47.1); HEMOGLOBIN 12.5 g/dL (12.5-16.3); MEAN CORPUSCULAR HEMOGLOBIN 32.4 uug (23.8-33.4); MEAN CORPUSCULAR HGB CONC 32 g/dL (32.5-36.3); MEAN CORPUSCULAR VOLUME 101.9 fL (73.0-96.2); MONOCYTES # (AUTO) 3.6 K/uL (2.0-10.0); MONOCYTES % (AUTO) 11.4 % (0.0-11.0); NEUTROPHILS # (AUTO) 25.9 K/uL (1.8-8.9); NEUTROPHILS % (AUTO) 80.9 % (38.5-71.5); RED BLOOD CELL COUNT(AUTO) 3.85 MIL/uL (4.06-5.63)
[2019-07-12 05:25] LABS: CARBON DIOXIDE 15 mmol/L (21-32); CHLORIDE 95 mmol/L (98-107); CHOLESTEROL 134 mg/dL (<200); CREATININE 3.4 mg/dL (0.6-1.3); HDL CHOLESTEROL 48 mg/dL (40-60); POTASSIUM 5.1 mmol/L (3.5-5.1); TRIGLYCERIDES 130 MG/DL (30-150); UREA NITROGEN, BLOOD 35 mg/dL (7-18)
[2019-07-12 05:33] LABS: GLUCOSE 500 mg/dL (74-106)
[2019-07-12 05:57] LABS: THYROID STIMULATING HORMONE 3.033 mIU/mL (0.358-3.740)
--- NOTE | 2019-07-12 06:00 | NUR ---
labs called to [employer] [facility] and awaiting call back .
--- NOTE | 2019-07-12 06:00 | NUR ---
bladder scan done 27 ml and rechecked done 57 ml.
[2019-07-12 06:13] LABS: BAND % (MANUAL) 20 % (0-10); LYMPHOCYTES % (MANUAL) 7 % (20-40); METAMYELOCYTES % 4 % (0-1); MONOCYTES % (MANUAL) 8 % (2-10); MYELOCYTES % 2 % (0-0); NEUTROPHILS % (MANUAL) 58 % (42-75)
[2019-07-12] MEDS ORDERED: IV NS 1000 ML 1,000 ML IV PRN (06:15)
[2019-07-12] MEDS ORDERED: IV NORMAL SALINE 500 ML IV ONE (06:15)
[2019-07-12] MEDS ORDERED: DEXTROSE 50% 50 ML DISP.SYRIN IV PRN (06:15)
[2019-07-12] MEDS: BLOOD SUGAR DIAGNOSTIC 1 EACH STRIP VI SCH ×4 (06:24→23:23)
[2019-07-12] MEDS ORDERED: INSULIN REGULAR, HUMAN 300 UNIT/3 ML VIAL ONE (06:26)
[2019-07-12] MEDS: INSULIN REGULAR, HUMAN 300 UNIT/3 ML VIAL SQ PRN ×4 (06:35→23:25)
[2019-07-12] MEDS ORDERED: PANTOPRAZOLE SODIUM 40 MG TABLET.DR PO SCH (07:00)
--- NOTE | 2019-07-12 07:30 | NUR ---
Received report from shift supervisor rn nurse, patient in bed sedated on propofol 20, ET tube 24cm 7.5, a/c 14, tv 500, 50%. Patient is on levophed 40 mcg/min, neosynephrine 300, iv fluids NS @100. Patient is calm and cooperative. BP is borderline 93/62, pulse 116, respirations 34. o2 saturation 100%. Patient has clear breathsounds, sinus rhythm with bundle branch block, and tachypneic. Bar has a small amount of sanguinous urine. SCD's on, patients peripheral pulses are absent, and upper and lower extremities are cyanotic.
--- NOTE | 2019-07-12 08:00 | NUR ---
Discussed patient condition with Dr. Willard, order received for renal ultrasound and bladder ultrasound.
[2019-07-12] MEDS ORDERED: DOPamine IV DRIP 400 MG/250ML 250 ML IV PRN (08:30)
[2019-07-12 08:52] LABS: ABG BASE EXCESS -20.9 mmol/L; ABG HCO3 6.3 mmol/L; ABG PCO2 19.2 mmHg (35.0-45.0); ABG PH 7.131 (7.350-7.450); ABG PO2 221.2 mmHg (75.0-100.0); ABG SITE RIGHT RADIAL; ABG TOTAL HEMOGLOBIN 13.2 G/dL (13.5-18.0); COHb 0.8 % (0.5-1.5); MetHb 0.2 % (0.0-1.5); O2Hb 98.5 % (94.0-97.0); VENT MODE VENT - A/C; VT, ABG 500 mL
[2019-07-12] MEDS: ENOXAPARIN SODIUM 40 MG/0.4 ML DISP.SYRIN SQ SCH (09:00)
[2019-07-12] MEDS ORDERED: CLOTRIMAZOLE 1% CREAM 30 GM TUBE TP SCH (09:00)
[2019-07-12] MEDS: CHLORHEXIDINE GLUCONATE 15 ML MOUTHWASH MM SCH ×2 (09:55→20:59)
[2019-07-12] MEDS: FAMOTIDINE. 20 MG/2 ML VIAL IV SCH (09:55)
[2019-07-12] MEDS: ASPIRIN 81 MG TAB.CHEW PO SCH (09:55)
--- NOTE | 2019-07-12 10:00 | NUR ---
Patient seen by Dr. mathias
--- NOTE | 2019-07-12 10:24 | NUR ---
CLINICAL PHARMACY NOTE:VANCOMYCIN DOSING S: To continue vancomycin dosing on 78 y/o male for sepsis, resp failure, possible aspiration O: temp 100.1 BUN 35 SCr 3.4 WBC 32 Vanco random level on 07/12 with am labs: 14 ht 152 cm wt 68 kg Plan: Due to elevated srcr, will dose by random level. Patient received vanco 1gm IVPB x1 on 07/11 at 1400. Since vanco random this am is 14 mcg/ml, will give vanco 1gm IVPB x1 today at 1100. Will check srcr in am & decide when to order next random level for further dosing. Will continue to monitor
--- NOTE | 2019-07-12 10:30 | NUR ---
Patient seen by Dr. Mya, Dopamine discontinued, and Vasopressin added, Right arterial line inserted.
[2019-07-12] MEDS: VASOPRESSIN 50 UNIT in IV DEXTROSE 5% 500 ML IV PRN (10:55)
[2019-07-12] MEDS: SODIUM BICARBONATE 8.4% 150 MEQ in IV D5W 1000ML 1,000 ML IV PRN ×2 (10:57→19:52)
[2019-07-12] MEDS ORDERED: VANCOMYCIN IV 1,000 MG in IV DEXTROSE 5% 250 ML IV ONE (11:00)
--- NOTE | 2019-07-12 11:00 | NUR ---
Patient seen by Dr. Ziyad Castillo.
--- NOTE | 2019-07-12 12:15 | NUR ---
Patient seen by Dr. Pepper.
[2019-07-12] MEDS ORDERED: IV NS 1000 ML 1,000 ML IV ONE (12:45)
[2019-07-12 15:14] LABS: *BILIRUBIN,URIN 1+ (NEGATIVE); *BLOOD, URINE 3+ (NEGATIVE); *CLARITY,URINE CLOUDY (CLEAR); *COLOR,URINE Brown (YELLOW); *KETONES,URINE 1+ (NEGATIVE); LEUKOCYTE ESTERASE ,URINE 1+ (NEGATIVE); NITRITE, URINE NEGATIVE (NEGATIVE); PH,URINE 5.5 (5.0-8.0); UGLUCOSE TRACE (NEGATIVE)
[2019-07-12 15:41] LABS: CALCIUM OXALATE CRYSTALS,UR MODERATE /HPF (NONE SEEN); RBC,URINE 80-100 /HPF (0-3); SQUAMOUS EPITHELIAL CELL,UR FEW /HPF (NONE SEEN); URINE AMORPHOUS URATE MODERATE /HPF; WBC,URINE 20-50 /HPF (0-3)
[2019-07-12 15:42] LABS: MUCUS,URINE MANY /LPF (0-FEW)
--- NOTE | 2019-07-12 17:14 | NUR ---
received intubated with E.T tube size 7.5, placed at approximately 7.5 at lip line. pt unstable and condition is guarded. suctioned for moderate amount of thick pale white secretions, no new order received.
--- NOTE | 2019-07-12 19:11 | NUR ---
Patient continues to be on Heaven vent ET Tube 7.5, 24 cm, a/c 14, TV 500, Patient is on sodium bicarb 125cc, levophed 37mcg, neosynephrine 300Untis, Patient is sinus tachy with BBB, SCD's on, rivera draining minimal output. BP is stable on pressors. Oral care done frequently and bony prominces offloaded.
--- NOTE | 2019-07-12 19:30 | NUR ---
rounds made patient in bed orally intubated and on ac 14 /500/fio2 50% peep 0,saturation 100% RR 30 TO 31 ,on propofol for sedated at 15 mcg/kg/min continue to monitor for sedation rr is up unable to increase propofol c/o bp low and on pressors will continue to monitor rr and bp .norepinephrine /vasopressin /neosynephrine drip in progress and to follow protocol see spreadsheet and continue to monitor bp Q15 minutes follow a line bp with good wave form . maintenance ivf d5ns + nahco3 at 125 ml/hour .afebrile temp 98.4 F via axillary .no spontaneous eye opening pts withdraws only to deep painful stimulation via facial grimace .no urinary output f/c patent in placed as endorsed only 50 ml for the 12 hours . .left nare ngt to low intermittent wall suction very minimal output . hob up 30 degrees.continue to monitor bp and levels of comfort no family noted at bedside .
[2019-07-12] MEDS ORDERED: FLUCONAZOLE 200 MG/NS 100ML IV 100 MG in PREMIXED 1 EACH IV SCH (20:00)
--- NOTE | 2019-07-12 20:30 | NUR ---
pt had bm moderate in amt soft brownish in color . changed soiled linens and gown skin care done . applied z guard and hydrogel to sacral and cover with Mepilex . turned and reposition patient .
[2019-07-13] VITALS (30 sets, daily range): BP systolic 0–120; BP diastolic 11–80
[2019-07-13] MEDS: PHENYLEPHRINE IV 40 MG in IV DEXTROSE 5% 250 ML IV PRN ×3 (00:15→04:34)
--- NOTE | 2019-07-13 00:30 | NUR ---
suction via mouth and via ett with schuster to brownish secretions . hob up . urine output 50 ml q2 hourly concentrated and yellowish in color . continue with pressors and propofol unable to wean pressors bp drop <90 mm/hg . no s/s of pain .
[2019-07-13] MEDS: NOREPINEPHRINE BITARTRATE 8 MG in IV DEXTROSE 5% 500 ML IV PRN ×2 (01:21→05:08)
[2019-07-13] MEDS: MEROPENEM 1 G in IV NORMAL SALINE 100 ML IV SCH (02:16)
--- NOTE | 2019-07-13 04:06 | NUR ---
PT ON CONT FUENTES VENT WITH 7.[address] AND SECURED, WITH CURRENT VENT SETTINGS, PT TENDS TO BREATH RAPID AT TIMES, RR30-35 RR, PT HAS A A/LINE IN PLACE AND IS SEDATED, SUCTION LIGHT PALE YELL TINGE SECRETIONS, ALL VENT ALARMS GOOD, NO VENT CHANGES MADE, CHANGE POSITIONS ON ANCHOR FAST ORAL CARE DONE, CHANGE HME,AMBU BAG AT BEDSIDE.Mariya JAINP Addendum: 07/13/19 at 0408 by JAKE HUERTAS RT Amended: Links added.
[2019-07-13] MEDS: SODIUM BICARBONATE 8.4% 150 MEQ in IV D5W 1000ML 1,000 ML IV PRN (04:42)
[2019-07-13] MEDS: PROPOFOL 100 ML IV PRN (04:42)
[2019-07-13 05:20] LABS: PLATELET COUNT (AUTO) 81 K/uL (152-348)
[2019-07-13 05:22] LABS: BASOPHILS % (AUTO) 0.1 % (0.0-2.0); EOSINOPHILS % (AUTO) 0.1 % (0.0-7.0); HEMATOCRIT 41.9 % (36.7-47.1); HEMOGLOBIN 13.9 g/dL (12.5-16.3); LYMPHOCYTES # (AUTO) 2.6 K/uL (20.0-40.0); LYMPHOCYTES % (AUTO) 6.5 % (20.5-51.5); MEAN CORPUSCULAR HEMOGLOBIN 31.9 uug (23.8-33.4); MEAN CORPUSCULAR HGB CONC 33 g/dL (32.5-36.3); MEAN CORPUSCULAR VOLUME 95.8 fL (73.0-96.2); MONOCYTES # (AUTO) 2.4 K/uL (2.0-10.0); NEUTROPHILS # (AUTO) 34.5 K/uL (1.8-8.9); NEUTROPHILS % (AUTO) 87.3 % (38.5-71.5); RED BLOOD CELL COUNT(AUTO) 4.37 MIL/uL (4.06-5.63)
[2019-07-13 05:37] LABS: CARBON DIOXIDE 14 mmol/L (21-32); MAGNESIUM 1.7 mg/dL (1.8-2.4); PHOSPHOROUS 6.2 mg/dL (2.5-4.9); UREA NITROGEN, BLOOD 37 mg/dL (7-18)
[2019-07-13 05:57] LABS: WHITE BLOOD COUNT (AUTO) 39.5 K/uL (3.6-10.2)
[2019-07-13 05:58] LABS: CHLORIDE 80 mmol/L (98-107)
[2019-07-13 05:59] LABS: GLUCOSE 461 mg/dL (74-106)
[2019-07-13] MEDS: VASOPRESSIN 50 UNIT in IV DEXTROSE 5% 500 ML IV PRN (06:15)
[2019-07-13] MEDS: BLOOD SUGAR DIAGNOSTIC 1 EACH STRIP VI SCH (06:17)
[2019-07-13] MEDS: INSULIN REGULAR, HUMAN 300 UNIT/3 ML VIAL SQ PRN (06:19)
--- NOTE | 2019-07-13 06:31 | NUR ---
patient went to sinus bradycardia on the heart monitor and went asystole called called code blue and code blue protocols followed and initiated,crash cart at bedside CPR started. called blue was mandated by JULIENNE GHOTRA and code blue ended at 0641 unsuccessful..
--- NOTE | 2019-07-13 06:35 | NUR ---
called patients significant other /girlfriend Stan and notified that patient is being code and code blue in progress.she said is coming.
--- NOTE | 2019-07-13 06:40 | NUR ---
called Demetria patient daughter and notified that we are at the present coding patient . she said she wants everything done and her dad is a full code .
[2019-07-13] MEDS ORDERED: EPINEPHRINE 1:10,000 1 MG/10 ML DISP.SYRIN IV ONE (06:41)
--- NOTE | 2019-07-13 06:48 | NUR ---
called [facility] and spoked with MARIBELL MORGAN and notified patients at 0641.
--- NOTE | 2019-07-13 07:10 | NUR ---
called [facility] and spoked with saroj ,as per saroj patient is not a candidate for organ donation [facility] no :[id number].
[2019-07-13 07:28] LABS: BAND % (MANUAL) 42 % (0-10); LYMPHOCYTES % (MANUAL) 3 % (20-40); METAMYELOCYTES % 4 % (0-1); MONOCYTES % (MANUAL) 8 % (2-10); MYELOCYTES % 2 % (0-0); NEUTROPHILS % (MANUAL) 41 % (42-75)
--- NOTE | 2019-07-13 07:30 | NUR ---
endorsed patient to [facility] ,waiting for family they are coming . no belongings noted.
[2019-07-13] MEDS ORDERED: ENOXAPARIN SODIUM 40 MG/0.4 ML DISP.SYRIN SQ SCH (09:00)
[2019-07-13] MEDS ORDERED: ASPIRIN 81 MG TAB.CHEW PO SCH (09:00)
== END 2019-07-13 06:42 | disposition expired | DRG 871 ==
LOC: ER 06:43 → TELE3 08:46 → CCU 13:15
PROC: 5A1945Z Respiratory Ventilation, 24-96 Consecutive Hours (ICD-10-PCS; principal; 2019-07-11)
PROC: 0BH17EZ Insertion of Endotracheal Airway into Trachea, Via Natural or Artificial Opening (ICD-10-PCS; 2019-07-11)
PROC: 06H033Z Insertion of Infusion Device into Inferior Vena Cava, Percutaneous Approach (ICD-10-PCS; 2019-07-11)
PROC: B549ZZA Ultrasonography of Inferior Vena Cava, Guidance (ICD-10-PCS; 2019-07-11)
PROC: 0D9670Z Drainage of Stomach with Drainage Device, Via Natural or Artificial Opening (ICD-10-PCS; 2019-07-11)
PROC: 03HY32Z Insertion of Monitoring Device into Upper Artery, Percutaneous Approach (ICD-10-PCS; 2019-07-12)
PROC: 5A12012 Performance of Cardiac Output, Single, Manual (ICD-10-PCS; 2019-07-13)
DX: A41.9 Sepsis, unspecified organism (principal); R65.21 Severe sepsis with septic shock; J96.01 Acute respiratory failure with hypoxia; I21.A1 Myocardial infarction type 2; G93.41 Metabolic encephalopathy; N17.0 Acute kidney failure with tubular necrosis; N39.0 Urinary tract infection, site not specified; N13.8 Other obstructive and reflux uropathy; E87.2 Acidosis; G31.83 Neurocognitive disorder with Lewy bodies; F02.80 Dementia in other diseases classified elsewhere, unspecified severity, without behavioral disturbance, psychotic disturbance, mood disturbance, and anxiety; N39.498 Other specified urinary incontinence; I25.10 Atherosclerotic heart disease of native coronary artery without angina pectoris; Z95.1 Presence of aortocoronary bypass graft; Z95.828 Presence of other vascular implants and grafts; R55 Syncope and collapse; N40.1 Benign prostatic hyperplasia with lower urinary tract symptoms; E11.22 Type 2 diabetes mellitus with diabetic chronic kidney disease; I12.9 Hypertensive chronic kidney disease with stage 1 through stage 4 chronic kidney disease, or unspecified chronic kidney disease; N18.9 Chronic kidney disease, unspecified; F41.9 Anxiety disorder, unspecified; F32.9 Major depressive disorder, single episode, unspecified; D64.9 Anemia, unspecified; Z79.899 Other long term (current) drug therapy; Z87.09 Personal history of other diseases of the respiratory system; Z74.01 Bed confinement status; Z91.81 History of falling; R26.81 Unsteadiness on feet
CPT/HCPCS: 36415; 36600; 70030-TC; 70450; 71045; 74018; 76770; 83605; 83735; 84100; 84443; 85025; 85610; 85730; 87040; 87070; 87086; 93005; 93307; 94002; 94003; A4217; A4663; C1758; G0378; J0171; J1265; J1450; J1650; J1815; J2185; J2370; J3370; J3490; J7030; J7040; J7042; J7060; J7070